=== PATIENT | female | born 1985 | race Two or more races ===

== ENCOUNTER 2016-11-06 11:10 | Emergency (ER) | payer SELFPAY ==
[2016-11-06 11:17] VITALS: BP 124/76; BMI 21.6
--- NOTE | 2016-11-06 11:33 | DR.GENAD ---
HPI - PCP Primary Care Physician: NONE - HPI Comment HPI Comment: GETTING WORSE. DENIES FEVER. PATIENT DENIES CHRONIC LUNG DISEASE. SHE IS WEAK. COUGH IS PRODUCTIVE, YELLOW SPUTUM. - Complaint/Symptoms Chief Complaint Doctors Comments: PERSISTENT COUGH AND WHEEZING, SOB AND CHEST PAIN TIMES 2 WEEKS. Chief Complaint:: PT BEEN COUGHING FOR TWO WEEKS AND THE PAST TWO DAYS SHE HAS BECOME VERY WEAK AND TIRED - Nurses notes reviewed Nurses Notes Review: Yes - Source History Provided: Patient - Mode of Arrival Mode of Arrival: Ambulatory - Timing Onset of Chief Complaint: 10/31/16 Came on: Suddenly - Duration Duration: Constant Duration: Days - Severity Severity: Moderate PMH - PMH Past Medical History: No Past Surgical History: No - Family History History of Family Medical Conditions: No - Social History Does patient currently use any type of tobacco product: No Have you used tobacco products in the last 12 months: No Type of Tobacco Use: None Does any household member use tobacco: No Alcohol Use: None Do you use any recreational Drugs:: No Lives With: Family Lives Where: Home - infectious screening In the last 2 months have you had wt loss of >10#?: NO Have you had fever, night sweats or hemotysis?: No Have you traveled outside the country in the last 6 months?: No Isolation: Standard ROS - Review of Systems Constitutional: Weakness, Fatigue, Loss of Appetite Eyes: No Symptoms Reported. negative: Eye Pain, Discharge ENTM: No Symptoms Reported. negative: Ear Pain, Nose Discharge, Epistaxis, Nose Congestion, Throat Pain Respiratoy: Productive Cough, Short of Breath, Wheezing Cardiovascular: Chest Pain. negative: Edema, Palpitations Gastrointestinal/Abdominal: No Symptoms Reported Genitourinary: No Symptoms Reported Neurological: No Symptoms Reported Musculoskeletal: Muscle Pain Integumentary: No Symptoms Reported Hematologic/Lymphatic: No Symptoms Reported Endocrine: No Symptoms Reported All Other Systems: Reviewed and Negative PE - Vital Signs Vitals: Temperature 98.5 F Pulse Rate 88 Respiratory Rate 18 Blood Pressure 124/76 O2 Sat by Pulse Oximetry 95 - General Limitations: Language Barrier ( INTERPRETING FROM [place] TO [place] FOR PATIENT.) General Appearance: Alert - Head Head Exam: Normal Inspection - Eyes Eye exam: Normal Appearance - ENT ENT Exam: Normal External Ear Exam External Ear Exam: Normal External Inspection TM/Canal Exam: Bilateral Normal Nose Exam: Normal Nose Exam Mouth Exam: Normal Inspection Throat Exam: Normal Inspection - Neck Neck Exam: Trachea Midline. negative: Tenderness, Meningismus, Lymphadenopathy - Chest Chest Inspection: Symmetric Chest Wall Rise - Respiratory Respiratory Exam: Respiratory Distress. negative: Chest Wall Tenderness Respiratory Exam: Bilateral Wheezing, Bilateral Rhonchi, Upper Wheezing, Lower Wheezing, Lower Rhonchi - Cardiovascular Cardiovascular Exam: Regular Rate, Normal Rhythm, Normal Heart Sounds - Abdominal Exam Abdominal Exam: Normal Bowel Sounds, Soft. negative: Tenderness - Extremities Extremities Exam: Normal Inspection - Back Back Exam: Normal Inspection - Neurologic Neurological Exam: Alert, Oriented X3 (PATIENTS INTERTRETING FOR HER FROM [place].) - Psychiatric Psychiatric Exam: Anxious - Skin Skin Exam: Normal Color MDM - Additional Information Additional Information Obtained From: Family - Differential Diagnosis Differential Diagnosis: BRONCHITIS, PNEUMONIA, RESPIRATORY DISTRESS Course - Treatment Treatment: SEE ORDERS. - Reevaluation 1st: Improved - Education/Counseling Education/Counseling: Patient, Family, Education Educated On: Treatment, Diagnosis, Needs for Follow Up ROR - Labs Reviewed Laboratory Results Reviewed?: Yes Result Diagrams: 11/06/16 12:10 11/06/16 12:10 Laboratory: WBC 9.3 X10^3/uL (3.6-10.0) 11/06/16 12:10 RBC 5.47 X10^6/uL (3.5-5.4) H 11/06/16 12:10 Hgb 15.3 g/dL (12.0-16.0) 11/06/16 12:10 Hct 44.8 % (36.0-47.0) 11/06/16 12:10 MCV 81.7 fL (80.0-100.0) 11/06/16 12:10 MCH 27.9 pg (27.0-34.0) 11/06/16 12:10 MCHC 34.1 g/dL (33.0-35.0) 11/06/16 12:10 RDW 13.0 % (11.6-16.5) 11/06/16 12:10 Plt Count 190 X10^3/uL (150.0-450.0) 11/06/16 12:10 MPV 9.1 fL (7.4-11.0) 11/06/16 12:10 Neut % 54.6 % (42.0-75.0) 11/06/16 12:10 Lymph % 29.6 % (21.0-51.0) 11/06/16 12:10 [place] % 4.8 % (0.0-13.0) 11/06/16 12:10 Eos % 10.5 % (0.9-2.9) H 11/06/16 12:10 Baso % 0.5 % (0.2-1.0) 11/06/16 12:10 Neut # 5.1 x10^3/uL (2.2-4.8) H 11/06/16 12:10 Lymph # 2.8 X10^3/uL (1.3-2.9) 11/06/16 12:10 [place] # 0.4 x10^3/uL (0.3-0.8) 11/06/16 12:10 Eos # 1.0 x10^3/uL (0.0-0.2) H 11/06/16 12:10 Baso # 0.0 X10^3/uL (0.0-0.1) 11/06/16 12:10 Absolute Nucleated RBC 0.0 /100WBC 11/06/16 12:10 Sodium 142 mmol/L (136-145) 11/06/16 12:10 Corrected Sodium 143 mmol/L (136-145) 11/06/16 12:10 Potassium 3.5 mmol/L (3.5-5.1) 11/06/16 12:10 Chloride 105 mmol/L (98-107) 11/06/16 12:10 Carbon Dioxide 26.6 mmol/L (21-32) 11/06/16 12:10 BUN 10 mg/dL (7-18) 11/06/16 12:10 Creatinine 0.82 mg/dL (0.55-1.02) 11/06/16 12:10 Est GFR (MDRD) Af Amer > 60 (>60) 11/06/16 12:10 Est GFR (MDRD) Non-Af > 60 (>60) 11/06/16 12:10 Glucose 148 mg/dL (65-99) H 11/06/16 12:10 Calcium 9.3 mg/dL (8.5-10.1) 11/06/16 12:10 Corrected Calcium TNP 11/06/16 12:10 Total Bilirubin 1.10 mg/dL (0.2-1.0) H 11/06/16 12:10 AST 38 Units/L (15-37) H 11/06/16 12:10 ALT 49 Units/L (12-78) 11/06/16 12:10 Alkaline Phosphatase 83 Units/L (46-116) 11/06/16 12:10 Total Protein 8.0 g/dL (6.4-8.2) 11/06/16 12:10 Albumin 4.1 g/dL (3.4-5.0) 11/06/16 12:10 Globulin 3.9 g/dL (2.5-4.5) 11/06/16 12:10 Albumin/Globulin Ratio 1.1 Ratio (1.1-2.1) 11/06/16 12:10 HCG, Qual Negative <10 mIU/mL 11/06/16 12:10 Influenza A (H1N1) PCR Not detected (NOT DETECT) 11/06/16 11:40 Influenza Type A (PCR) Negative (NEGATIVE) 11/06/16 11:40 Influenza Type B (PCR) Negative (NEGATIVE) 11/06/16 11:40 - XRAY XRAY Interpreted by: Radiologist XRAY Findings: REPORT DISCUSS WITH PATIENT. - Diagnosis Discharge Problem: Acute bronchitis Qualifiers: Bronchitis organism: other organism Qualified Code(s): J20.8 - Acute bronchitis due to other specified organisms - Discharge Plan Disposition: 01 HOME, SELF-CARE Condition: Stable Prescriptions: Amoxicillin [Amoxil 875 mg] 875 mg PO BID #20 tab Promethazine W/Codeine [PHENERGAN W/CODEINE 6.25mg/10mg (5mL) *] 10 ml PO Q6H PRN #120 ml PRN Reason: Cough - Follow ups/Referrals Follow ups/Referrals: NFD,None [Primary Care Provider] - 2 days MARYJO ORDAZ [STAFF PHYSICIAN] - 2 days - Instructions Instructions: Acute Bronchitis, [id number] Additional Instructions: RETURN TO ED IF WORSE.
[2016-11-06] MEDS ORDERED: DUONEB 0.5 MG/3 MG NEB ONE (11:35)
[2016-11-06] MEDS ORDERED: DUONEB 0.5 MG/3 MG ONE (11:40)
[2016-11-06 12:15] LABS: BASOPHILS % (AUTO) 0.5 % (0.2-1.0); EOSINOPHILS % (AUTO) 10.5 % (0.9-2.9); HEMATOCRIT 44.8 % (36.0-47.0); HEMOGLOBIN 15.3 g/dL (12.0-16.0); LYMPHOCYTES # (AUTO) 2.8 X10^3/uL (1.3-2.9); LYMPHOCYTES % (AUTO) 29.6 % (21.0-51.0); MEAN CORPUSCULAR HEMOGLOBIN 27.9 pg (27.0-34.0); MEAN CORPUSCULAR HGB CONC 34.1 g/dL (33.0-35.0); MEAN CORPUSCULAR VOLUME 81.7 fL (80.0-100.0); MEAN PLATELET VOLUME 9.1 fL (7.4-11.0); MONOCYTES # (AUTO) 0.4 x10^3/uL (0.3-0.8); MONOCYTES % (AUTO) 4.8 % (0.0-13.0); NEUTROPHILS # (AUTO) 5.1 x10^3/uL (2.2-4.8); NEUTROPHILS % (AUTO) 54.6 % (42.0-75.0); PLATELET COUNT 190 X10^3/uL (150.0-450.0); RED BLOOD COUNT 5.47 X10^6/uL (3.5-5.4); WHITE BLOOD COUNT 9.3 X10^3/uL (3.6-10.0)
[2016-11-06 12:20] LABS: SERUM PREGNANCY TEST, QUAL NEGATIVE <10 mIU/mL
[2016-11-06 12:27] LABS: ALANINE AMINOTRANSFERASE 49 Units/L (12-78); ALBUMIN 4.1 g/dL (3.4-5.0); ALKALINE PHOSPHATASE 83 Units/L (46-116); ASPARTATE AMINO TRANSFERASE 38 Units/L (15-37); BLOOD UREA NITROGEN 10 mg/dL (7-18); CALCIUM 9.3 mg/dL (8.5-10.1); CARBON DIOXIDE 26.6 mmol/L (21-32); CHLORIDE 105 mmol/L (98-107); COR NA(FOR HYPERGLY) 143 mmol/L (136-145); CREATININE 0.82 mg/dL (0.55-1.02); GLUCOSE 148 mg/dL (65-99); SODIUM 142 mmol/L (136-145); eGFR BLACK RACES > 60 (>60); eGFR NON BLACK RACES > 60 (>60)
--- NOTE | 2016-11-06 12:45 | RAD ---
HISTORY: Cough for 2 weeks Study: Two-view Chest Comparison: Findings: The trachea is midline . There is no widening or shift of mediastinum. The cardiac silhouette appear s within normal limits. The costophrenic angles are sharp and both diaphragms are adequately maintai zoe. The lungs are adequately aerated. Osseous structures are within normal limits for the patient's age peribronchial cuffing centrally bilaterally consistent with bronchitis. IMPRESSION: 1. Heart normal size bronchitis. No evidence of bacterial pneumonia. Reported By:
== END 2016-11-06 13:08 | disposition home or self-care (01) ==
LOC: ER 11:20
DX: J20.8 Acute bronchitis due to other specified organisms (principal)
CPT/HCPCS: 36415; 71020; 80053; 84703; 85025; 87502; 87503; 94640; 99282; 99283; J7620

== ENCOUNTER 2016-11-09 00:14 | Emergency (ER) | payer SELFPAY ==
[2016-11-09 00:21] VITALS: BP 138/90; BMI 24.4
--- NOTE | 2016-11-09 00:45 | DR.GENAD ---
HPI - PCP Primary Care Physician: LEWIS - Complaint/Symptoms Chief Complaint:: "About 2 weeks ago she started having trouble breathing. She has been really tired and throwing up. She can't sleep. She has been running a fever the past two days. She also hurts on her right upper shoulder." - Source History Provided: Patient, Significant Other - Mode of Arrival Mode of Arrival: Wheelchair - Timing Onset of Chief Complaint: 10/27/16 PMH - PMH Past Medical History: No Past Surgical History: No - Family History History of Family Medical Conditions: No - Social History Does patient currently use any type of tobacco product: No Have you used tobacco products in the last 12 months: No Type of Tobacco Use: None Does any household member use tobacco: No Alcohol Use: None Do you use any recreational Drugs:: No Lives With: Spouse, Family Lives Where: Home - infectious screening In the last 2 months have you had wt loss of >10#?: NO Have you had fever, night sweats or hemotysis?: No Have you traveled outside the country in the last 6 months?: No Isolation: Standard PE - Vital Signs Vitals: Temperature 98.7 F Pulse Rate 88 Respiratory Rate 18 Blood Pressure 138/90 O2 Sat by Pulse Oximetry 98 ROR - Labs Reviewed Result Diagrams: 11/09/16 01:00 11/09/16 01:00 Laboratory: WBC 12.0 X10^3/uL (3.6-10.0) H 11/09/16 01:00 RBC 5.57 X10^6/uL (3.5-5.4) H 11/09/16 01:00 Hgb 15.6 g/dL (12.0-16.0) 11/09/16 01:00 Hct 45.5 % (36.0-47.0) 11/09/16 01:00 MCV 81.7 fL (80.0-100.0) 11/09/16 01:00 MCH 28.0 pg (27.0-34.0) 11/09/16 01:00 MCHC 34.3 g/dL (33.0-35.0) 11/09/16 01:00 RDW 12.9 % (11.6-16.5) 11/09/16 01:00 Plt Count 198 X10^3/uL (150.0-450.0) 11/09/16 01:00 MPV 9.3 fL (7.4-11.0) 11/09/16 01:00 Neut % 68.4 % (42.0-75.0) 11/09/16 01:00 Lymph % 16.2 % (21.0-51.0) L 11/09/16 01:00 [place] % 6.5 % (0.0-13.0) 11/09/16 01:00 Eos % 8.3 % (0.9-2.9) H 11/09/16 01:00 Baso % 0.6 % (0.2-1.0) 11/09/16 01:00 Neut # 8.2 x10^3/uL (2.2-4.8) H 11/09/16 01:00 Lymph # 1.9 X10^3/uL (1.3-2.9) 11/09/16 01:00 [place] # 0.8 x10^3/uL (0.3-0.8) 11/09/16 01:00 Eos # 1.0 x10^3/uL (0.0-0.2) H 11/09/16 01:00 Baso # 0.1 X10^3/uL (0.0-0.1) 11/09/16 01:00 Absolute Nucleated RBC 0.0 /100WBC 11/09/16 01:00 Sodium 141 mmol/L (136-145) 11/09/16 01:00 Corrected Sodium TNP 11/09/16 01:00 Potassium 3.9 mmol/L (3.5-5.1) 11/09/16 01:00 Chloride 104 mmol/L (98-107) 11/09/16 01:00 Carbon Dioxide 26.5 mmol/L (21-32) 11/09/16 01:00 BUN 13 mg/dL (7-18) 11/09/16 01:00 Creatinine 0.74 mg/dL (0.55-1.02) 11/09/16 01:00 Est GFR (MDRD) Af Amer > 60 (>60) 11/09/16 01:00 Est GFR (MDRD) Non-Af > 60 (>60) 11/09/16 01:00 Glucose 100 mg/dL (65-99) H 11/09/16 01:00 Calcium 9.2 mg/dL (8.5-10.1) 11/09/16 01:00 Corrected Calcium TNP 11/09/16 01:00 Total Bilirubin 0.90 mg/dL (0.2-1.0) 11/09/16 01:00 AST 78 Units/L (15-37) H 11/09/16 01:00 ALT 87 Units/L (12-78) H 11/09/16 01:00 Alkaline Phosphatase 102 Units/L (46-116) 11/09/16 01:00 Total Protein 8.4 g/dL (6.4-8.2) H 11/09/16 01:00 Albumin 4.1 g/dL (3.4-5.0) 11/09/16 01:00 Globulin 4.3 g/dL (2.5-4.5) 11/09/16 01:00 Albumin/Globulin Ratio 1.0 Ratio (1.1-2.1) L 11/09/16 01:00 Specimen Type Clean catch urine 11/09/16 01:53 Urine Color Yellow (YELLOW) 11/09/16 01:53 Urine Appearance Clear (CLEAR) 11/09/16 01:53 Urine pH 6.0 (5.0 - 8.0) 11/09/16 01:53 Ur Specific [place] 1.010 (1.000-1.030) 11/09/16 01:53 Urine Protein Negative (NEGATIVE) 11/09/16 01:53 Urine Glucose (UA) Negative (NEGATIVE) 11/09/16 01:53 Urine Ketones Negative (NEGATIVE) 11/09/16 01:53 Urine Occult Blood Negative (NEGATIVE) 11/09/16 01:53 Urine Nitrite Negative (NEGATIVE) 11/09/16 01:53 Urine Bilirubin Negative (NEGATIVE) 11/09/16 01:53 Urine Urobilinogen Normal (NORMAL) 11/09/16 01:53 Ur Leukocyte Esterase 1+ (NEGATIVE) 11/09/16 01:53 Urine RBC 0-3 /HPF (NEGATIVE) 11/09/16 01:53 Urine WBC 2-4 /HPF (NEGATIVE) 11/09/16 01:53 Ur Squamous Epith Cells Few /HPF (NEGATIVE) 11/09/16 01:53 Urine Bacteria Trace /HPF (NEGATIVE) 11/09/16 01:53 Ur Culture Indicated? No/not indicated 11/09/16 01:53 - Diagnosis Discharge Problem: Bronchitis - Discharge Plan Condition: Stable Prescriptions: Prednisone [Prednisone DS Dosepak 10 mg (12 day)] 1 juan alberto PO ONCE #1 juan alberto - Follow ups/Referrals Follow ups/Referrals: NFD,None [Primary Care Provider] - 3 days - Instructions
[2016-11-09] MEDS ORDERED: DUONEB 0.5 MG/3 MG NEB ONE (00:51)
[2016-11-09] MEDS ORDERED: DUONEB 0.5 MG/3 MG ONE (00:55)
[2016-11-09 01:08] LABS: BASOPHILS # (AUTO) 0.1 X10^3/uL (0.0-0.1); BASOPHILS % (AUTO) 0.6 % (0.2-1.0); EOSINOPHILS % (AUTO) 8.3 % (0.9-2.9); HEMATOCRIT 45.5 % (36.0-47.0); HEMOGLOBIN 15.6 g/dL (12.0-16.0); LYMPHOCYTES # (AUTO) 1.9 X10^3/uL (1.3-2.9); LYMPHOCYTES % (AUTO) 16.2 % (21.0-51.0); MEAN CORPUSCULAR HGB CONC 34.3 g/dL (33.0-35.0); MEAN CORPUSCULAR VOLUME 81.7 fL (80.0-100.0); MEAN PLATELET VOLUME 9.3 fL (7.4-11.0); MONOCYTES # (AUTO) 0.8 x10^3/uL (0.3-0.8); MONOCYTES % (AUTO) 6.5 % (0.0-13.0); NEUTROPHILS # (AUTO) 8.2 x10^3/uL (2.2-4.8); NEUTROPHILS % (AUTO) 68.4 % (42.0-75.0); PLATELET COUNT 198 X10^3/uL (150.0-450.0); RED BLOOD COUNT 5.57 X10^6/uL (3.5-5.4); RED CELL DISTRIBUTION WIDTH 12.9 % (11.6-16.5)
[2016-11-09 01:19] LABS: ALANINE AMINOTRANSFERASE 87 Units/L (12-78); ALBUMIN 4.1 g/dL (3.4-5.0); ALKALINE PHOSPHATASE 102 Units/L (46-116); ASPARTATE AMINO TRANSFERASE 78 Units/L (15-37); BLOOD UREA NITROGEN 13 mg/dL (7-18); CALCIUM 9.2 mg/dL (8.5-10.1); CARBON DIOXIDE 26.5 mmol/L (21-32); CHLORIDE 104 mmol/L (98-107); CREATININE 0.74 mg/dL (0.55-1.02); GLUCOSE 100 mg/dL (65-99); SODIUM 141 mmol/L (136-145); TOTAL PROTEIN 8.4 g/dL (6.4-8.2); eGFR BLACK RACES > 60 (>60); eGFR NON BLACK RACES > 60 (>60)
[2016-11-09 01:58] LABS: BILIRUBIN,URINE NEGATIVE (NEGATIVE); BLOOD/HEMOGLOBIN,URINE NEGATIVE (NEGATIVE); GLUCOSE, URINE NEGATIVE (NEGATIVE); KETONES,URINE NEGATIVE (NEGATIVE); LEUKOCYTE ESTERASE ,URINE 1+ (NEGATIVE); NITRITES,URINE NEGATIVE (NEGATIVE); PROTEIN,URINE NEGATIVE (NEGATIVE); UROBILINOGEN,URINE NORMAL (NORMAL)
[2016-11-09 01:59] LABS: APPEARANCE,URINE CLEAR (CLEAR); COLOR,URINE YELLOW (YELLOW)
[2016-11-09 02:03] LABS: BACTERIA,URINE TRACE /HPF (NEGATIVE); RBC,URINE 0-3 /HPF (NEGATIVE); SQUAMOUS EPITHELIAL CELL,UR FEW /HPF (NEGATIVE)
== END 2016-11-09 02:51 | disposition home or self-care (01) ==
LOC: ER 00:14
DX: J40 Bronchitis, not specified as acute or chronic (principal)
CPT/HCPCS: 36415; 80053; 81001; 85025; 94640; 99282; J7620